=== PATIENT | male | born 1955 | race African-American/Black ===

== ENCOUNTER → 2022-05-30 | Outpatient (CLI) | payer OTHER ==
[~2022-05-30] MED LIST: GLIMEPIRIDE4 MG PO; KEFLEX500 MG PO; METFORMIN HCL500 MG PO; MOTRIN800 MG PO; PRAVASTATIN SOD40 MG PO
== END | disposition home or self-care (01) ==
LOC: CARD 05-27 09:30
PROVIDERS: ATTEND Internal Medicine
DX: M79.89 Other specified soft tissue disorders (principal); I51.7 Cardiomegaly

== ENCOUNTER → 2022-08-19 | Outpatient (CLI) | payer OTHER ==
[2022-08-19 14:04] LABS: ABG BASE EXCESS 6.1 mmol/L (-2.0-2.0); ARTERIAL BLOOD GAS PH 7.482 (7.35-7.45); ARTERIAL BLOOD GAS PO2 68.2 (80-90)
== END | disposition home or self-care (01) ==
LOC: LAB 09:39
PROVIDERS: ATTEND Internal Medicine Pulmonary Disease
DX: J98.6 Disorders of diaphragm (principal)

== ENCOUNTER → 2022-09-12 | Outpatient (CLI) | payer OTHER | END | disposition home or self-care (01) | LOC: US 01:56 | PROVIDERS: ATTEND Internal Medicine | DX: I50.9 Heart failure, unspecified (principal); R09.89 Other specified symptoms and signs involving the circulatory and respiratory systems; M79.604 Pain in right leg; M79.605 Pain in left leg ==

== ENCOUNTER → 2022-11-07 | Outpatient (CLI) | payer OTHER ==
[2022-11-07 11:18] LABS: BILIRUBIN Negative (Negative); BLOOD Negative (Negative); CLARITY Clear (Clear); COLOR Yellow (Yellow); GLUCOSE Negative (Negative); KETONE Negative (Negative); LEUKO ESTERASE Negative (Negative); NITRITE Negative (Negative); PH 6.5 (4.5-8.0); SPECIFIC GRAVITY <= 1.005 (1.001-1.030)
[2022-11-07 11:30] LABS: EPITHELIAL CELLS 0-2; WBC 0-2 wbc/hpf (0-5)
[2022-11-07 11:42] LABS: URINE CHLORIDE, RANDOM 33 mmol/L; URINE CREATININE RANDOM 12.15 mg/dL
[2022-11-07 12:01] LABS: ALKALINE PHOSPHATASE 115 U/L (46-116); BUN 10 mg/dl (9-23); CHLORIDE 103 mmol/L (98-107); POTASSIUM 4.4 mmol/L (3.4-5.1); SGPT/ALT 11 U/L (10-49); TOTAL PROTEIN 7.1 gm/dL (6.0-8.0)
== END | disposition home or self-care (01) ==
LOC: LAB 01:45
PROVIDERS: ATTEND Nurse Practitioner Family
DX: E87.1 Hypo-osmolality and hyponatremia (principal); N17.9 Acute kidney failure, unspecified

== ENCOUNTER → 2023-05-12 | Outpatient (CLI) | payer OTHER ==
[2023-05-12 11:10] LABS: HEMATOCRIT 34.6 % (42.0-52.0)
[2023-05-12 11:30] LABS: BILIRUBIN Negative (Negative); BLOOD Negative (Negative); CLARITY Clear (Clear); COLOR Yellow (Yellow); GLUCOSE Negative (Negative); KETONE Negative (Negative); LEUKO ESTERASE Negative (Negative); NITRITE Negative (Negative); PH 7.5 (4.5-8.0); SPECIFIC GRAVITY <= 1.005 (1.001-1.030)
[2023-05-12 11:33] LABS: URINE CREATININE RANDOM 20.07 mg/dL
[2023-05-12 11:53] LABS: BUN 13 mg/dl (9-23); CHLORIDE 101 mmol/L (98-107); POTASSIUM 4.2 mmol/L (3.4-5.1)
[2023-05-12 11:57] LABS: VITAMIN D, 25-HYDROXY 94.2 ng/mL (30-100)
[2023-05-12 12:08] LABS: EPITHELIAL CELLS 0-2; WBC 0-2 wbc/hpf (0-5)
== END | disposition home or self-care (01) ==
LOC: LAB 10:39
PROVIDERS: ATTEND Internal Medicine
DX: I12.9 Hypertensive chronic kidney disease with stage 1 through stage 4 chronic kidney disease, or unspecified chronic kidney disease (principal); N18.9 Chronic kidney disease, unspecified; E55.9 Vitamin D deficiency, unspecified; N25.81 Secondary hyperparathyroidism of renal origin; D63.1 Anemia in chronic kidney disease; D64.9 Anemia, unspecified